=== PATIENT | female | born 1960 | race Caucasian/White ===

== ENCOUNTER 2016-11-09 09:05 | Day surgery (SDC) | payer BC ==
[2016-11-04 14:28] VITALS: BMI 33.4
[~2016-11-09 09:05] MED LIST: LACTATED RINGERS 1,000 ML IV SCH; LIDOCAINE 1% 20 ML VIAL (10MG/ML) FOR IV START INTRADERMA PRN
[2016-11-09 09:35] VITALS: RESP 16; TEMP 98.1
[2016-11-09] MEDS ORDERED: PROPOFOL 10 MG/ML 20 ML VIAL IV ONE (10:21)
[2016-11-09] MEDS ORDERED: LIDOCAINE 1% INJ 10MG/ML (20 ML MDV) ONE (10:21)
--- NOTE | 2016-11-09 10:37 | P.GSHP ---
History of Present Illness H&P Date: 11/09/16 Chief Complaint: Diverticulitis history of colonic polyps This is a 56-year-old female referred from Dr. Dr. Hernadez. Patient presents today for colonoscopy. She's had issues with diverticulitis and colonic polyps. - Constitutional Constitutional: Reports as per HPI Past Medical History Past Medical History: Hyperlipidemia, Hypertension, Osteoarthritis (OA), Thyroid Disorder History of Any Multi-Drug Resistant Organisms: None Reported Past Surgical History: Cholecystectomy Additional Past Surgical History / Comment(s): PAIN CLINIC INJECTIONS Past Anesthesia/Blood Transfusion Reactions: No Reported Reaction Past Psychological History: Anxiety, Bipolar Smoking Status: Current every day smoker Past Alcohol Use History: None Reported Additional Past Alcohol Use History / Comment(s): STARTED SMOKING AT AGE 16 SMOKES 1PPD Past Drug Use History: None Reported - Past Family History Brother(s) Family Medical History: Deep Vein Thrombosis (DVT) Sister(s) Family Medical History: Cancer Additional Family Medical History / Comment(s): BREAST CANCER Medications and Allergies Home Medications Medication Instructions Recorded Confirmed Type ALPRAZolam [Xanax] 0.5 mg PO Q8HR PRN 11/04/16 11/04/16 History Acetaminophen with Codeine 1 tab PO TID PRN 11/04/16 11/04/16 History [Tylenol w/codeine #3] Docusate [Colace] 100 mg PO DAILY 11/04/16 11/04/16 History Gabapentin [Neurontin] 300 mg PO TID 11/04/16 11/04/16 History Levothyroxine Sodium [Synthroid] 125 mcg PO DAILY 11/04/16 11/04/16 History Omeprazole [PriLOSEC] 20 mg PO AC-[id number] 11/04/16 11/04/16 History Simvastatin [Zocor] 20 mg PO DAILY 11/04/16 11/04/16 History Allergies Allergy/AdvReac Type Severity Reaction Status Date / Time No Known Allergies Allergy Verified 11/09/16 09:26 Surgical - Exam Vital Signs Temp Pulse Resp BP Pulse Ox 98.1 F 110 H 16 138/88 95 11/09/16 09:33 11/09/16 09:33 11/09/16 09:33 11/09/16 09:33 11/09/16 09:33 - General well developed, no distress - Eyes PERRL - ENT normal pinna - Neck no masses - Respiratory normal expansion - Cardiovascular Rhythm: regular - Abdomen Abdomen: soft Assessment and Plan Plan: History of diverticulitis of colonic polyps. We'll perform colonoscopy.
--- NOTE | 2016-11-09 10:55 | P.OP ---
Date of Procedure: 11/09/16 Preoperative Diagnosis: History of diverticulitis Colon polyps Postoperative Diagnosis: Mild diverticulosis Rectal polyp Procedure(s) Performed: Colonoscopy Anesthesia: MAC Surgeon: Colby Perdomo Pathology: other (Rectal polyp) Condition: stable Disposition: PACU Description of Procedure: The patient's placed on the endoscopy table in the lateral position. She received IV sedation. Digital rectal exam was performed which revealed no abnormalities. Flexible colonoscope was then placed patient anus passed throughout the entire colon. The ileocecal valve visualized. Cecum, ascending and transverse colon appeared normal. In the descending; was mild diverticular changes. Scope was then brought back the rectum and a small polyp was seen. This is removed the forcep. Scope was then withdrawn from patient.
[2016-11-09 11:12] VITALS: BP 133/73; PULSE 86
== END 2016-11-09 12:31 | disposition home or self-care (01) ==
LOC: ORWHC2ENDO 09:05
PROVIDERS: ATTEND Surgery
DX: K62.1 Rectal polyp (principal); K57.30 Diverticulosis of large intestine without perforation or abscess without bleeding; Z86.010 Personal history of colon polyps; Z87.19 Personal history of other diseases of the digestive system; E78.5 Hyperlipidemia, unspecified; I10 Essential (primary) hypertension; E07.9 Disorder of thyroid, unspecified; K21.9 Gastro-esophageal reflux disease without esophagitis; M19.90 Unspecified osteoarthritis, unspecified site; F41.9 Anxiety disorder, unspecified; F31.9 Bipolar disorder, unspecified; F17.200 Nicotine dependence, unspecified, uncomplicated; Z79.891 Long term (current) use of opiate analgesic; Z79.899 Other long term (current) drug therapy
CPT/HCPCS: 88305; 45380; J2001; J2704; 45378; 99153

== ENCOUNTER → 2017-08-10 | Outpatient (CLI) | payer BC ==
[2017-08-10 11:43] LABS: Basophils % (A) 0 %; CH 31.4; CHCM 33.1; Eosinophils # (A) 0.3 k/uL (0-0.7); Eosinophils % (A) 4 %; HCT 46.2 % (34.0-46.0); HDW 2.51; HGB 15.1 gm/dL (11.4-16.0); Luc # (Auto) 0.16; Luc % (Auto) 3; Lymphocytes % (A) 34 %; MCH 31.3 pg (25.0-35.0); MCHC 32.7 g/dL (31.0-37.0); MCV 95.6 fL (80.0-100.0); Mean Platelet Volume 6.6; Monocytes # (A) 0.4 k/uL (0-1.0); Monocytes % (A) 8 %; Neutrophils # (A) 2.9 k/uL (1.3-7.7); Neutrophils % (A) 50 %; RBC 4.84 m/uL (3.80-5.40); RDW 13.5 % (11.5-15.5); WBC 5.8 k/uL (3.8-10.6); WBC (Perox) 5.41
[2017-08-10 11:57] LABS: Appearance,Urine Clear (Clear); Bilirubin,Urine Negative (Negative); Glucose,Urine (UA) Negative (Negative); Ketones,Urine Negative (Negative); Leukocyte Esterase,Urine Negative (Negative); Mucus,Urine Rare /hpf; Nitrite,Urine Negative (Negative); Particle Count 641; Protein,Urine Negative (Negative); Specific Gravity,Urine 1.005 (1.001-1.035); Squamous Epithelial Cell,Urine 1 /hpf (0-4); UA Billing (MACRO vs. MICRO) MICRO; Urobilinogen,Urine <2.0 mg/dL (<2.0); WBC,Urine <1 /hpf (0-5)
[2017-08-10 11:59] LABS: Anion Gap 12 mmol/L; Blood Urea Nitrogen 9 mg/dL (7-17); Calcium 9.7 mg/dL (8.4-10.2); Carbon Dioxide 25 mmol/L (22-30); Chloride 104 mmol/L (98-107); Glucose 93 mg/dL (74-99); Non-African American GFR(MDRD) >60 (>60 ml/min/1.73 sqM); Sodium 141 mmol/L (137-145)
[2017-08-10 12:26] LABS: Partial Thromboplastin Time 26.3 sec (22.0-30.0); Prothrombin Time 10.6 sec (9.0-12.0)
== END | disposition home or self-care (01) ==
LOC: LABWHC1 10:48
PROVIDERS: ATTEND Orthopaedic Surgery Orthopaedic Surgery of the Spine
DX: Z01.812 Encounter for preprocedural laboratory examination (principal); M48.00 Spinal stenosis, site unspecified
CPT/HCPCS: 36415; 80048; 81001; 85025; 85610; 85730; 86850; 86900; 86901

== ENCOUNTER 2017-08-15 11:20 | Day surgery (SDC) | payer BC ==
[2017-08-10 09:07] VITALS: BMI 34.5
[~2017-08-15 11:20] MED LIST changes: +BACITRACIN 50,000 UNIT, POLYMYXIN B 500,000 UNIT in SODIUM CHLORIDE 0.9% IRRIGATIO 1,00... IRRIGATION ONE; +DEXAMETHASONE SOD PHOSPHATE 10 MG/ML 1 ML VIAL IV ONE; +HYDROmorphone 0.5 MG/0.5 ML SYRINGE IVP PRN; +MIDAZOLAM 2 MG/2 ML VIAL IV PRN; +ONDANSETRON 4 MG/2 ML VIAL IVP ONE; +SCOPOLAMINE 1.5MG/72HR PATCH TRANSDERM ONE; +ceFAZolin 2 GM in SODIUM CHLORIDE 0.9% 100 ML IVPB ONE
[2017-08-15] MEDS ORDERED: SUCCINYLCHOLINE CHLORIDE 100 MG/5 ML SYR IV ONE (12:51)
[2017-08-15] MEDS ORDERED: MIDAZOLAM 2 MG/2 ML VIAL ONE (12:51)
[2017-08-15] MEDS ORDERED: NEOSTIGMINE 1 MG/ML 10 ML VIAL ONE (12:51)
[2017-08-15] MEDS ORDERED: GLYCOPYRROLATE 0.2 MG/ML 2 ML VIAL ONE (12:51)
[2017-08-15] MEDS ORDERED: fentaNYL (PF) 50 MCG/ML 2 ML AMP ONE (12:51)
[2017-08-15] MEDS ORDERED: LIDOCAINE 1% INJ 10MG/ML (20 ML MDV) ONE (12:51)
[2017-08-15] MEDS ORDERED: ROCURONIUM BROMIDE 10 MG/ML 10 ML VIAL IV ONE (12:51)
[2017-08-15] MEDS ORDERED: HYDROmorphone (PF) 1 MG/ML ONE (12:51)
[2017-08-15] MEDS ORDERED: PROPOFOL 10 MG/ML 20 ML VIAL IV ONE (12:51)
[2017-08-15] MEDS ORDERED: BUPIVACAINE-EPI 0.5%-1:200,000 10 ML VIAL SQ ONE (13:23)
[2017-08-15] MEDS ORDERED: GELATIN SPONGE,ABSORB (LARGE) 1 EACH SPONGE TOPICAL ONE (13:34)
[2017-08-15] MEDS ORDERED: THROMBIN (BOVINE) 5,000 UNIT VIAL TOPICAL ONE (13:37)
[2017-08-15] MEDS ORDERED: BUPIVACAINE (PF) 0.25% 30 ML VIAL SQ ONE (13:45)
[2017-08-15] MEDS ORDERED: LACTATED RINGERS 1,000 ML IV ONE (13:47)
--- NOTE | 2017-08-15 13:54 | XR ---
EXAMINATION TYPE: XR lumbar spine 1V, FL guidance operating room DATE OF EXAM: 08/15/2017 CLINICAL HISTORY: Lumbar laminectomy TECHNIQUE: Fluoroscopy. COMPARISON: None. FINDINGS/IMPRESSION: Fluoroscopic guidance was provided during procedure performed by Dr. Martínez. A total of 2 seconds of fluoroscopic time was utilized during the procedure and 1 spot images was acqui red.
[2017-08-15] MEDS ORDERED: HYDROcodone/APAP 5-325MG 1 EACH TAB PO PRN ×2 (14:40)
[2017-08-15] MEDS ORDERED: HYDROmorphone 0.5 MG/0.5 ML SYRINGE IVP PRN (14:40)
[2017-08-15] MEDS ORDERED: TRIMETHOBENZAMIDE 100 MG/ML 2 ML VIAL IM PRN (14:40)
[2017-08-15] MEDS ORDERED: HYDROmorphone 1 MG/ML 1 ML SYRINGE IVP PRN (14:40)
[2017-08-15] MEDS ORDERED: BENZOCAINE/MENTHOL LOZENG 1 EACH LOZENGE MUCOUS MEM PRN (14:40)
[2017-08-15] MEDS ORDERED: DIAZEPAM 5 MG TAB PO PRN (14:40)
--- NOTE | 2017-08-15 14:40 | P.OP ---
Date of Procedure: 08/15/17 Preoperative Diagnosis: Spinal stenosis L4 5, neurogenic claudication, degenerative disc disease, facet arthrosis Postoperative Diagnosis: Same Anesthesia: GETA Pathology: none sent Condition: stable Disposition: PACU Description of Procedure: DESCRIPTION OF PROCEDURE(S): BRIEF OPERATIVE NOTE Preoperative Diagnosis: Spinal stenosis , neurogenic claudication, lower extremity radiculopathy, degenerative disc disease, facet arthrosis Postoperative Diagnosis: Same Procedure: Laminectomy and decompression bilaterally with partial bilateral facetectomies and foraminotomies L4 5 Placement of interlaminar stabilization Coflex device size 12 Use of fluoroscopic guidance Surgeon: Dr. Martínez Software Installation Engineer: Geeta martinez who is present throughout the entire the case persistence during positioning, dissection, exposure, visualization, and all crucial elements of the case as well as closure. Anesthesia: General anesthesia Estimated blood loss: Approximately 50 mL Complications: None apparent Components implanted: [employer] Coflex interlaminar stabilization device Disposition: To recovery room in good stable condition. OPERATIVE INDICATIONS The patient has been having issues in their lower back and lower extremities. He was having evidence of neurogenic claudication and spinal stenosis along with issues with lower extremity radiculopathy. He was found to have significant spinal stenosis which correlated well with his low back and lower extremity symptoms. She had significant spinal stenosis at L4 5 with disc degeneration facet arthrosis. She is having significant neurogenic claudication which was not resolving despite aggressive conservative treatment. The patient has been through conservative treatment. With his imaging the level of his stenosis and his propensity for the possibility of recurrent stenosis I felt that decompression with intralaminar stabilization would be a good benefit for him. We discussed various treatment options including surgery , and the patient wishes to proceed with surgery We discussed the risk, patient' s alternatives and benefits of surgery including but not limited to, risk of bleeding risk of infection, risk of need for further surgery, risk of decreased , loss of motion, loss of function, nerve damage, paralysis, heart attack, blindness and . OPERATIVE SUMMARY After discussing all the risks, patient alternatives and benefits at length, the patient elected to proceed with surgical intervention, signed informed consent, and presented for their procedure. The patient was seen and examined in the preoperative holding area and the surgical site was marked. The patient was given antibiotics and brought to the operating room. The patient was sedated and intubated by anesthesia in standard fashion. The patient was positioned on to the operating room table in a prone position on the appropriate frame which was well-padded and well molded. We were careful to pad any bony prominences and pressure points. We were careful to maintain the patient's cervical spine and good neutral alignment and position throughout. The patient was prepped and draped in a normal standard fashion. An appropriate timeout and keystone protocol performed. We were able to proceed with the surgery. Fluoroscopy was utilized to establish the appropriate level. The local wound area was infiltrated with local anesthetic. An incision was made at the midline longitudinally over the appropriate levels At L4 5. Dissection was taken down subcutaneously to the level of the fascia which was split midline. Dissection was taken over the lamina. Intraoperative fluoroscopy was taken which showed a marker at the appropriate level Of L4 5. With the appropriate level positively confirmed, we were able to proceed with laminectomy. The wound was copiously irrigated and suctioned dry as had been done periodically throughout the case. I performed a laminectomy with a combination of curettes and a high-speed bur and Kerrison rongeurs. A small medial facetectomy was performed again further access. This was done bilaterally at that level. A partial foraminotomy was also performed Bilaterally at L4 5. Portions of the ligamentum flavum were taken down to expose the dura and traversing nerve root. I was able to mobilize the traversing nerve root and gain access to the disc space. I did not see any specific disc extrusion. There is no evidence of dural tear or leak. Good hemostasis maintained. The wound was copiously irrigated and suctioned dry. Good decompression was noted. At this point further prepared the interspinous process and interlaminar space with a combination of curettes and a high-speed bur and Kerrison rongeurs. As able get good parallel alignment at the interspinous process space and interlaminar space. I used a trial spacer for the Coflex device and have good fit and fill with the appropriate size device. I had to shave down the spinous process at to allow for appropriate positioning of the Coflex device. The device was prepared and then positioned and malleted in position with good alignment and good position and good bony purchase at the interlaminar space. The position was checked and found to be approximately 3 mm away from the dura without impingement on the dura itself. It was checked and found to be stable. Intraoperative C-arm was utilized to confirm the alignment and position at the appropriate levels At L4 5. We were able to proceed with closure. The fascia was closed for a watertight closure. The subcuticular tissue was closed with absorbable suture. The wound was cleaned and dried and dressed with the appropriate dressing. The drapes were broken down. The patient was gently rolled back onto their hospital bed being careful to maintain their cervical spine and good neutral alignment and position. They were woken up by anesthesia, extubated, and brought to the recovery room in good stable condition. The patient will be admitted to the hospital for observation and for appropriate postoperative care, medical management and monitoring. We will continue to follow them closely about the postoperative course.
[2017-08-15] MEDS ORDERED: PANTOPRAZOLE 40 MG TABLET PO PRN (14:42)
[2017-08-15] MEDS ORDERED: HYDROcodone/APAP 10-325MG 1 EACH TAB PO PRN (14:42)
[2017-08-15] MEDS ORDERED: LORATADINE 10 MG TAB PO PRN (14:42)
[2017-08-15] MEDS ORDERED: ACETAMINOPHEN TAB 500 MG TAB PO PRN (14:42)
[2017-08-15] MEDS ORDERED: ALPRAZolam 0.5 MG TAB PO PRN (14:42)
[2017-08-15] MEDS ORDERED: SODIUM CHLORIDE 0.9% 1,000 ML IV SCH (14:45)
[2017-08-15 15:44] VITALS: RESP 16
[2017-08-15 17:11] VITALS: BP 149/78; PULSE 84; TEMP 97.1
[2017-08-15] MEDS ORDERED: ceFAZolin 2 GM in SODIUM CHLORIDE 0.9% 100 ML IVPB SCH (21:00)
[2017-08-16] MEDS ORDERED: LEVOTHYROXINE 125 MCG TAB PO SCH (06:30)
[2017-08-16] MEDS ORDERED: NICOTINE 21MG/24HR PATCH TRANSDERM SCH (09:00)
[2017-08-16] MEDS ORDERED: SENNOSIDES-DOCUSATE SODIUM 1 EACH TAB PO SCH (09:00)
[2017-08-16] MEDS ORDERED: sulfaSALAzine 500 MG TAB PO SCH (09:00)
[2017-08-16] MEDS ORDERED: ATORVASTATIN 10 MG TAB PO SCH (09:00)
== END 2017-08-15 18:42 ==
LOC: OR 11:20 → 5MS5E 14:21 → OR 18:42
PROVIDERS: ATTEND Orthopaedic Surgery Orthopaedic Surgery of the Spine
DX: M48.062 Spinal stenosis, lumbar region with neurogenic claudication (principal); M51.36 Other intervertebral disc degeneration, lumbar region; M46.96 Unspecified inflammatory spondylopathy, lumbar region; M51.26 Other intervertebral disc displacement, lumbar region; M51.17 Intervertebral disc disorders with radiculopathy, lumbosacral region; E78.5 Hyperlipidemia, unspecified; K21.9 Gastro-esophageal reflux disease without esophagitis; I10 Essential (primary) hypertension; E03.9 Hypothyroidism, unspecified; G89.21 Chronic pain due to trauma; F32.9 Major depressive disorder, single episode, unspecified; F17.200 Nicotine dependence, unspecified, uncomplicated; K58.9 Irritable bowel syndrome, unspecified; R20.2 Paresthesia of skin; Z79.891 Long term (current) use of opiate analgesic; Z79.899 Other long term (current) drug therapy; Z79.82 Long term (current) use of aspirin; Z88.1 Allergy status to other antibiotic agents
CPT/HCPCS: 22867; 72020; C1713; J2250; J2710; J0690; J2405; J2001; J3010; J1170 ×2; J0330; J2704; 86850; 86900; 86901

== ENCOUNTER → 2018-06-14 | Outpatient (CLI) | payer BC ==
[2018-06-14 14:00] LABS: Basophils % (A) 0 %; Eosinophils # (A) 0.2 k/uL (0-0.7); Eosinophils % (A) 2 %; HCT 41.8 % (34.0-46.0); HGB 13.3 gm/dL (11.4-16.0); Lymphocytes # (A) 2.8 k/uL (1.0-4.8); Lymphocytes % (A) 32 %; MCH 30.8 pg (25.0-35.0); MCHC 31.7 g/dL (31.0-37.0); Mean Platelet Volume 6.5; Monocytes # (A) 0.6 k/uL (0-1.0); Monocytes % (A) 7 %; Neutrophils % (A) 56 %; Platelet Count 331 k/uL (150-450); WBC 8.8 k/uL (3.8-10.6)
[2018-06-14 19:46] LABS: Immunoglobulin E 17.8 IU/mL (0.00-114.00)
[2018-06-15 12:59] LABS: Immunoglobulin M 87.6 mg/dL (40.0-280.0)
== END | disposition home or self-care (01) ==
LOC: LABWHC1 13:22
PROVIDERS: ATTEND Allergy & Immunology
DX: H66.93 Otitis media, unspecified, bilateral (principal)
CPT/HCPCS: 36415; 82784; 82785; 85025

== ENCOUNTER → 2018-08-02 | Outpatient (CLI) | payer BC ==
--- NOTE | 2018-08-02 09:44 | US ---
EXAMINATION TYPE: US duplex aorta DATE OF EXAM: 08/02/2018 COMPARISON: NONE CLINICAL HISTORY: I70.0 Atherosclerosis of aorta. Calcified aorta EXAM MEASUREMENTS: Abdominal Aorta: Proximal: 2.4 x 2.5cm Mid: 2.1 x 2.1cm Distal: 2.0 x 2.2cm Right Iliac: 1.2 x 1.2cm Left Iliac: 1.0 x 1.0cm No AAA seen at this time. There is mild abdominal aortic atherosclerosis that is multifocal. IMPRESSION: Mild abdominal aortic atherosclerosis with no sonographic evidence of abdominal aortic an eurysm in the visualized portions of the abdominal aorta.
== END ==
LOC: RADUSWWP 08:39
PROVIDERS: ATTEND Family Medicine
DX: I70.0 Atherosclerosis of aorta (principal); Z88.1 Allergy status to other antibiotic agents
CPT/HCPCS: 93979

== ENCOUNTER → 2021-09-03 | Outpatient (CLI) | payer BC ==
--- NOTE | 2021-09-04 08:08 | XR ---
EXAMINATION TYPE: XR ribs RT w pa chest xray DATE OF EXAM: 09/03/2021 COMPARISON: 08/11/2017 HISTORY: Intercostal pain TECHNIQUE: 5 views chest and ribs FINDINGS: There is bony remodeling of the posterior lateral aspects of the second through 11th ribs o n the right. No definite pneumothorax is seen. Cardiac silhouette is not enlarged. IMPRESSION: Subacute right posterior lateral rib fractures of the second through 11th ribs.
== END | disposition home or self-care (01) ==
LOC: RADXRYALE 15:43
PROVIDERS: ATTEND Physician Assistant
DX: S22.41XA Multiple fractures of ribs, right side, initial encounter for closed fracture (principal)

== ENCOUNTER → 2023-12-20 | Outpatient (CLI) | payer OTHER ==
--- NOTE | 2023-12-20 23:10 | XR ---
EXAMINATION TYPE: XR foot complete RT DATE OF EXAM: 12/20/2023 COMPARISON: None HISTORY: Pain lateral malleolus TECHNIQUE: Three-view right foot FINDINGS: Hallux valgus deformity is present. Degenerative joint changes first digit and first metata rsal phalangeal joint space. No acute fractures are evident. Tarsal metatarsal junction degenerative joint changes are present. La rge plantar calcaneal spur is present. There appears to be some degenerative change at the tibiotalar junction. IMPRESSION: 1. Degenerative changes within the foot. No acute fractures are evident. Follow-up can be performed as clinically indicated
--- NOTE | 2023-12-20 23:13 | XR ---
EXAMINATION TYPE: XR ankle complete RT DATE OF EXAM: 12/20/2023 COMPARISON: Right foot images HISTORY: Pain medial malleolus TECHNIQUE: Three-view right ankle FINDINGS: The lateral projection appears to be lucency within the posterior talus. Chronic fracture m ay be present. Consider additional workup with CT exam Large plantar calcaneal heel spur is present. Ankle mortise frontal projection appears normal positio n. Mild soft tissue swelling at the medial malleolus may be present. IMPRESSION: 1. Appears to be a chronic fracture within the posterior talus. Correlate with the history. Consider additional workup with CT
== END | disposition home or self-care (01) ==
LOC: RADXRYALE 16:23
PROVIDERS: ATTEND Family Medicine
DX: M19.071 Primary osteoarthritis, right ankle and foot (principal); M77.31 Calcaneal spur, right foot